=== PATIENT | male | born 1970 | race African-American/Black ===

== ENCOUNTER 2016-11-18 08:02 | Emergency (ER) | payer OTHER ==
[~2016-11-18] VITALS: Ht 185.4 cm; Wt 77.1 kg
--- NOTE | ~2016-11-18 | CT4 ---
[facility] A Service of [facility] RADIOLOGY TEXT RESULTS PATIENT: LETY GOLD LOCATION: [facility] : 74 UNIT #: [id number] AGE: [address]: Marilyn Steward SEX: M ORDER DR: [id number] [facility] [address] [place], [place] [address] [id number] E MR#: [id number] Acc #: [id number] NAME: LETY GOLD : 1970 SEX: M STUDY DATE/TIME: 11/18/2016 0904 UNIT: [facility] ROOM: STUDY DESCRIPTION: CT Abd and Pelv Wo Cont Attending Physician: Marilyn Steward P.A.-C. Referring Physician: No Primary Care Physician Ordering Physician: Marilyn Steward P.A.-C. Primary Care Physician: No Primary Care Physician MEDICAL IMAGING REPORT This report is preliminary unless electronic signature is present EXAM CT abdomen and pelvis without contrast, 11/18/2016, 0904 hours. HISTORY 46-year-old man complaining of lower abdominal pain and right flank pain since 11/13/2016. COMPARISON None TECHNIQUE Helical noncontrasted images were obtained from the lung bases through the pubic symphysis without oral or intravenous contrast. Sagittal and coronal reconstructions were performed. Total exam DLP 655 mGy-cm. This CT exam was performed with one or more of the following radiation dose reduction techniques: automatic exposure control, adjustment of mA and/or kV according to patient size, and iterative reconstruction. FINDINGS Images through the lung bases demonstrate clear lungs. There is no nodule or effusion. The distal esophagus is normal. Images through the abdomen demonstrate a normal appearance to the liver, spleen, pancreas, and bile ducts. There is a single large stone in the gallbladder measuring 2.2 cm. There is no gallbladder wall thickening or pericholecystic fluid. The adrenal glands are normal. The left kidney and left ureter are normal. The right kidney demonstrates mild to moderate pelvocaliectasis and ureterectasis diffusely to the level of the right ureterovesical junction. There is a small stone measuring 0.35 cm, either at the right STS. [facility] A Service of [facility] & [facility] RADIOLOGY TEXT RESULTS PATIENT: LETY GOLD [id number] : 74 UNIT #: [id number] AGE: [address]: Marilyn Steward SEX: M ORDER DR: ureterovesical junction or just passed into the bladder. This stone is resulting in moderate to high-grade obstruction. There are additional nonobstructing punctate 2 mm stones in the lower pole right kidney. There is trace atherosclerotic calcification of the abdominal aorta. The aorta is normal in caliber. Stomach and small bowel are normal. Terminal ileum and appendix are normal. There is no colonic thickening. CT pelvis is otherwise negative. IMPRESSION 1. There is a 0.35 cm stone either at the right ureterovesical junction or just passed into the bladder resulting in moderate to high-grade obstruction of the right kidney and ureter. 2. There are 2 punctate 2 mm nonobstructing stones in the lower pole right kidney. No left renal or ureteral calculi. 3. Normal appendix. Dictated by... Isadora Farah M.D. THIS IS AN ELECTRONICALLY VERIFIED REPORT Isadora Farah M.D. at 11/18/2016 2:37 PM DONALDO/charlie TD: 11/18/2016 11:27 JOB #: [id number] MEDICAL IMAGING REPORT Page 1 of 1 COPY
[2016-11-18 08:51] LABS: BASOPHIL# 0.1 X10e3 (0-0.3); BASOPHIL% 0.7 % (0-2.5); EOSINOPHIL# 0.1 X10e3 (0-0.7); EOSINOPHIL% 0.7 % (0.0-7.0); HEMOGLOBIN 15.8 gm/dL (13.0-16.0); LYMPHOCYTE# 2.3 X10e3 (1.0-3.5); LYMPHOCYTE% 22.9 % (17.0-45.0); MEAN CELL VOLUME 85.9 FL (83-96); MEAN CORPUSCULAR HEMOGLOBIN 28.8 PG (28-34); MEAN CORPUSCULAR HGB CONC 33.5 g/dL (30-36); MEAN PLATELET VOLUME 7.9 FL (6.5-11.5); MONOCYTE# 0.7 X10e3 (0-1.0); MONOCYTE% 6.7 % (3.0-12.0); NEUTROPHIL# 6.9 X10e3 (1.5-7.1); PLATELET COUNT 256 X10e3 (140-420); RED BLOOD COUNT 5.47 X10e (3.90-5.60); RED CELL DISTRIBUTION WIDTH 14.2 % (11.0-15.5); WHITE BLOOD COUNT 9.9 X10e3 (4.0-10.5)
[2016-11-18 09:01] LABS: DIFF IND NO
[2016-11-18 09:16] LABS: ALBUMIN SERUM 4.5 g/dL (3.5-5.0); BILIRUBIN, DIRECT 0.1 mg/dL (0.0-0.2); BILIRUBIN,INDIRECT 0.8 mg/dL (0.0-0.9); BILIRUBIN,TOTAL 0.9 mg/dL (0.2-2.0); BUN/CREATININE RATIO 10.71; CALCIUM SERUM 9.1 mg/dL (8.4-10.2); CREATININE SERUM 1.4 mg/dL (0.6-1.4); GLOM FILT RATE Estimated 70.3 mL/min (>60); POTASSIUM 3.9 mmol/L (3.5-5.1); PROTEIN TOTAL SERUM 7.9 g/dL (6.0-8.3)
[2016-11-18 10:04] LABS: URINE SOURCE CLEAN CATCH
[2016-11-18 10:13] LABS: URINE APPEARANCE CLEAR; URINE BILIRUBIN NEG (NEG); URINE BLOOD 4+ (NEG); URINE COLOR YELLOW; URINE GLUCOSE 50 MG/DL (NORM); URINE KETONE NEG (NEG); URINE LEUKOCYTE ESTERASE NEG (NEG); URINE NITRATE NEG (NEG); URINE PH 6.5 (5-8); URINE PROTEIN NEG (NEG); URINE SPECIFIC GRAVITY 1.015 (1.003-1.035); URINE UROBILINOGEN NORM (NORM)
[2016-11-18 10:15] LABS: U HYALINE CASTS AUWI 0-2 /[LPF]; URBCS1 AUWI 200-300 /[HPF] (0-2); URINE BACTERIA AUWI NEG (NEGATIVE); URINE SQUAMOUS EPITHELIAL CELL NONE SEEN /[HPF]; UWBCS1 AUWI 0-2 (0-5)
[2016-11-18 10:16] LABS: CULTURE INDICATED? NO
== END 2016-11-18 11:12 | disposition home or self-care (01) ==
LOC: CED 08:02
PROVIDERS: Physician Assistant
DX: N20.1 Calculus of ureter (principal); E16.2 Hypoglycemia, unspecified; F17.210 Nicotine dependence, cigarettes, uncomplicated
CPT/HCPCS: 36415; 74176; 80048; 80076; 81003; 82150; 83690; 85025; 96361; 96374; 96375; 99284; J1885; J2270; J2405